=== PATIENT | male | born 1990 | race Caucasian/White ===

== ENCOUNTER → 2016-10-27 | Outpatient (CLI) | payer OTHER ==
[2016-10-27 08:11] LABS: MEAN CORPUSCULAR HEMOGLOBIN 30.6 pg (27.0-33.0); MEAN CORPUSCULAR HGB CONC 35.2 g/dl (32.0-36.5); MEAN CORPUSCULAR VOLUME 87.1 fl (80.0-96.0); WHITE BLOOD COUNT 5.3 K/mm3 (4.0-10.0)
[2016-10-27 08:43] LABS: ALBUMIN 3.9 GM/DL (3.2-5.2); ALBUMIN/GLOBULIN RATIO 1.26 (1.00-1.93); ALKALINE PHOSPHATASE 74 U/L (45-117); ALT/SGPT 43 U/L (12-78); ANION GAP 8 MEQ/L (8-16); AST/SGOT 14 U/L (15-37); BILIRUBIN,TOTAL 1.4 MG/DL (0.2-1.0); BLOOD UREA NITROGEN 20 MG/DL (7-18); CALCIUM LEVEL 9.1 MG/DL (8.5-10.1); CARBON DIOXIDE LEVEL 29 MEQ/L (21-32); CHLORIDE LEVEL 103 MEQ/L (98-107); CHOLESTEROL LEVEL 188 MG/DL (<200); CREATININE FOR GFR 0.84 MG/DL (0.70-1.30); GLOMERULAR FILTRATION RATE > 60.0 (>60); GLUCOSE, FASTING 252 MG/DL (70-105); SODIUM LEVEL 140 MEQ/L (136-145); TRIGLYCERIDES LEVEL 154 MG/DL (<150)
== END | disposition home or self-care (01) ==
LOC: M LAB 07:37
PROVIDERS: ATTEND Nurse Practitioner Family
DX: I10 Essential (primary) hypertension (principal); E10.9 Type 1 diabetes mellitus without complications; E78.00 Pure hypercholesterolemia, unspecified

== ENCOUNTER 2016-10-31 14:46 | Emergency (ER) | payer OTHER ==
[2016-10-31] MEDS ORDERED: AMOXICILLIN 250 MG CAP As Ordered ONE (18:43)
[2016-10-31] MEDS ORDERED: IBUPROFEN 800 MG TAB As Ordered ONE (18:43)
--- NOTE | 2016-10-31 18:51 | EDDOCDS ---
Nurse's Notes [facility] Name: Mehdi Sims Age: 25 yrs Sex: Male : 1990 Arrival Date: 10/31/2016 Time: 14:46 Bed TR7 Private MD: Matthew Hodges [facility] Diagnosis: Arrested dental caries Presentation: 10/31 15:01 Presenting complaint: Patient states: "I have a very bad toothache, it switches from jc4 tooth to tooth and I've got a migraine". [facility] Adult Sepsis Screening: The patient does not have new or worsening altered mentation. Patient's respiratory rate is less than 22. Systolic blood pressure is greater than 100. Patient has a qSOFA score of 0- Negative Sepsis Screen. Suicide/Homicide risk assessment- the patient denies having any suicidal and/or homicidal ideations and does not present with any other emotional, behavioral or mental health complaints. Status: Patient is not a hotel services sales representative or dependent. Transition of care: patient was not received from another setting of care. 15:01 Acuity: MARCE Level 4 jc4 15:01 Method Of Arrival: Walkin/Carried/Asstd jc4 Triage Assessment: 15:05 General: Appears in no apparent distress. Pain: Pain currently is 7 out of 10 on a pain jc4 scale. Pt Declines HIV testing. EENT: Reports pain in mouth. Historical: - Allergies: no known allergies; - Home Meds: 1. Lantus 100 unit/mL Sub-Q soln 38 unit nightly (Last dose: 10/30/2016) 2. Humalog 100 unit/mL Sub-Q soln sliding scale three times daily (Last dose: 10/31/2016 11:30) 3. Wellbutrin 75 mg Oral tab 2 tabs daily (Last dose: 10/31/2016 07:30) 4. ibuprofen 200 mg Oral tab 2 tabs every 4-6 hours as needed (Last dose: 10/31/2016 12:00) - PMHx: Diabetes - IDDM: controlled; Anxiety; Depression; - PSHx: none; - Social history: Smoking status: Patient uses tobacco products, heavy tobacco smoker. No barriers to communication noted, The patient speaks fluent Angolan. - Family history: Not pertinent. - : The pt / caregiver states he / she is not on anticoagulants. Home medication list is obtained from the patient. - Exposure Risk Screening:: None identified. Screenin:48 Screening information is obtained from the patient. Fall risk: No risks identified. ms18 Assistance ADL's: requires no assistance with activities of daily living. Abuse/DV Screen: The patient / caregiver reports he/she is: not in a situation that causes fear, pain or injury. Nutritional screening: No deficits noted. Advance Directives: There is no living will. home support is adequate. Assessment: 18:48 General: Appears in no apparent distress, comfortable, Behavior is appropriate for age, ms18 cooperative, pleasant. Pain: Location: mouth. Neurological: Level of Consciousness is awake, alert, obeys commands, Oriented to person, place, time. Respiratory: Airway is patent Respiratory effort is even, unlabored. Derm: Skin is pink, warm & dry. Vital Signs: 14:48 BP 121 / 72; Pulse 92; Resp 18 S; Temp 97.8(O); Pulse Ox 98% on R/A; Weight 89.36 kg gr2 (M); Height 5 ft. 11 in. (180.34 cm) (R); Pain 8/10; 17:21 BP 118 / 56; Pulse 78; Resp 18; Temp 98.4(TE); Pulse Ox 99% on R/A; Pain 7/10; ar3 18:48 BP 123 / 73 RA Sitting (auto/lg); Pulse 82; Resp 20; Temp 99.5; Pulse Ox 99% on R/A; bnb 14:48 Body Mass Index 27.48 (89.36 kg, 180.34 cm) gr2 Vitals: 14:48 Log In Time: October 31, 2016 at 14:48. gr2 ED Course: 14:48 Patient visited by Srikanth Arroyo. gr2 14:48 [facility] is Private Physician. gr2 14:48 Patient moved to Waiting gr2 14:50 Patient visited by Srikanth Arroyo. gr2 14:50 Patient moved to Pre RCE gr2 15:02 Triage Initiated jc4 17:23 Patient visited by Rosalinda Santiago PCA. ar3 18:20 Patient moved to Triage 2 bnb 18:21 Vikash Amezcua PA is PHCP. mo1 18:21 Kimmie Hawkins MD is Attending Physician. mo1 18:31 Patient visited by Vikash Amezcua PA. mo1 18:37 [facility] is Referral Physician. mo1 18:46 Patient moved to TR7 ms18 18:48 Patient visited by Enedelia Gore PCA. bnb 18:48 The patient / caregiver is instructed regarding the plan of care and ED course. Patient ms18 has correct armband on for positive identification. Property sent home with patient. :Personal belongings accompany Pt. 18:48 No IV's were initiated during this patient's visit. No IV's were initiated during this ms18 patient's visit. No procedures done that require assistance. Administered Medications: 18:47 Drug: Ibuprofen 800 mg [ibuprofen 800 mg tablet (1 tabs)] Route: PO; ms18 18:48 Drug: Amoxicillin 500 mg [amoxicillin 250 mg capsule (2 caps)] Route: PO; ms18 Order Results: There are currently no results for this order. Outcome: 18:37 Discharge ordered by Provider. mo1 18:48 Discharge Assessment: Patient awake, alert and oriented x 3. No cognitive and/or ms18 functional deficits noted. Patient verbalized understanding of disposition instructions. patient administered narcotics - no. The following High Risk Discharge criteria are identified: None. Discharged to home ambulatory. Condition: good Condition: stable Condition: improved. Discharge instructions given to patient, Instructed on discharge instructions, follow up and referral plans. medication usage, Demonstrated understanding of instructions, medications, Pt was receptive of discharge instructions/ teaching. Prescriptions given X 2. No special radiology studies were completed. 18:50 Patient left the ED. ms18 Signatures: Rosalinda Santiago, RN TRANSPLANT RN TRANSPLANT ar3 Amber Thomas, RN RN jc4 Srikanth Arroyo gr2 Vikash Amezcua PA PA mo1 Ayah Anglin,CAMRON RN ms18 Enedelia Gore PCA RN TRANSPLANT bnb [facility]
--- NOTE | 2016-10-31 18:51 | EDDOCDS ---
Physician Documentation [facility] Name: Mehdi Sims Age: 25 yrs Sex: Male : 1990 Arrival Date: 10/31/2016 Time: 14:46 Bed TR7 Private MD: Matthew Hodges [facility] Disposition: 10/31/16 18:37 Discharged to Home/Self Care. Impression: Arrested dental caries. - Condition is Stable. - Discharge Instructions: Dental Abscess, Dental Pain. - Prescriptions for Amoxicillin 500 mg Oral Capsule - take 1 capsule by ORAL route every 8 hours for 10 days; 30 tablet. Ibuprofen 800 mg Oral Tablet - take 1 tablet by ORAL route every 8 hours As needed take with food; 30 tablet. - Medication Reconciliation, Local Pharmacy Hours form. - Follow up: [facility]; When: Call to arrange an appointment; Reason: Recheck today's complaints, Continuance of care. - Problem is new. - Symptoms are unchanged. - Notes: rest and continue with warm salt water rinses, motrin for pain and limit physical activity, NO SMOKING Historical: - Allergies: no known allergies; - Home Meds: 1. Lantus 100 unit/mL Sub-Q soln 38 unit nightly (Last dose: 10/30/2016) 2. Humalog 100 unit/mL Sub-Q soln sliding scale three times daily (Last dose: 10/31/2016 11:30) 3. Wellbutrin 75 mg Oral tab 2 tabs daily (Last dose: 10/31/2016 07:30) 4. ibuprofen 200 mg Oral tab 2 tabs every 4-6 hours as needed (Last dose: 10/31/2016 12:00) - PMHx: Diabetes - IDDM: controlled; Anxiety; Depression; - PSHx: none; - Social history: Smoking status: Patient uses tobacco products, heavy tobacco smoker. No barriers to communication noted, The patient speaks fluent Zambian. - Family history: Not pertinent. - : The pt / caregiver states he / she is not on anticoagulants. Home medication list is obtained from the patient. - Exposure Risk Screening:: None identified. Vital Signs: 10/31 14:48 BP 121 / 72; Pulse 92; Resp 18 S; Temp 97.8(O); Pulse Ox 98% on R/A; Weight 89.36 kg / gr2 197.01 lbs (M); Height 5 ft. 11 in. (180.34 cm) (R); Pain 8/10; 17:21 BP 118 / 56; Pulse 78; Resp 18; Temp 98.4(TE); Pulse Ox 99% on R/A; Pain 7/10; ar3 18:48 BP 123 / 73 RA Sitting (auto/lg); Pulse 82; Resp 20; Temp 99.5; Pulse Ox 99% on R/A; bnb 14:48 Body Mass Index 27.48 (89.36 kg, 180.34 cm) gr2 MDM: 18:34 Amoxicillin 500 mg PO once ordered. mo1 18:34 Ibuprofen 800 mg PO once ordered. mo1 Administered Medications: 18:47 Drug: Ibuprofen 800 mg [ibuprofen 800 mg tablet (1 tabs)] Route: PO; ms18 18:48 Drug: Amoxicillin 500 mg [amoxicillin 250 mg capsule (2 caps)] Route: PO; ms18 Signatures: Amber Thomas RN RN jc4 Vikash Amezcua PA PA mo1 Ayah Anglin RN RN ms18 MTDD
--- NOTE | 2016-11-02 19:50 | EDDOCDS ---
Physician Documentation [facility] Name: Mehdi Sims Age: 25 yrs Sex: Male : 1990 Arrival Date: 10/31/2016 Time: 14:46 Bed TR7 Private MD: Matthew Hodges [facility] Disposition: 10/31/16 18:37 Discharged to Home/Self Care. Impression: Arrested dental caries. - Condition is Stable. - Discharge Instructions: Dental Abscess, Dental Pain. - Prescriptions for Amoxicillin 500 mg Oral Capsule - take 1 capsule by ORAL route every 8 hours for 10 days; 30 tablet. Ibuprofen 800 mg Oral Tablet - take 1 tablet by ORAL route every 8 hours As needed take with food; 30 tablet. - Medication Reconciliation, Local Pharmacy Hours form. - Follow up: [facility]; When: Call to arrange an appointment; Reason: Recheck today's complaints, Continuance of care. - Problem is new. - Symptoms are unchanged. - Notes: rest and continue with warm salt water rinses, motrin for pain and limit physical activity, NO SMOKING Historical: - Allergies: no known allergies; - Home Meds: 1. Lantus 100 unit/mL Sub-Q soln 38 unit nightly (Last dose: 10/30/2016) 2. Humalog 100 unit/mL Sub-Q soln sliding scale three times daily (Last dose: 10/31/2016 11:30) 3. Wellbutrin 75 mg Oral tab 2 tabs daily (Last dose: 10/31/2016 07:30) 4. ibuprofen 200 mg Oral tab 2 tabs every 4-6 hours as needed (Last dose: 10/31/2016 12:00) - PMHx: Diabetes - IDDM: controlled; Anxiety; Depression; - PSHx: none; - Social history: Smoking status: Patient uses tobacco products, heavy tobacco smoker. No barriers to communication noted, The patient speaks fluent [place] Rican. - Family history: Not pertinent. - : The pt / caregiver states he / she is not on anticoagulants. Home medication list is obtained from the patient. - Exposure Risk Screening:: None identified. Vital Signs: 10/31 14:48 BP 121 / 72; Pulse 92; Resp 18 S; Temp 97.8(O); Pulse Ox 98% on R/A; Weight 89.36 kg / gr2 197.01 lbs (M); Height 5 ft. 11 in. (180.34 cm) (R); Pain 8/10; 17:21 BP 118 / 56; Pulse 78; Resp 18; Temp 98.4(TE); Pulse Ox 99% on R/A; Pain 7/10; ar3 18:48 BP 123 / 73 RA Sitting (auto/lg); Pulse 82; Resp 20; Temp 99.5; Pulse Ox 99% on R/A; bnb 14:48 Body Mass Index 27.48 (89.36 kg, 180.34 cm) gr2 MDM: 18:34 Amoxicillin 500 mg PO once ordered. mo1 18:34 Ibuprofen 800 mg PO once ordered. mo1 11/01 09:06 T-Sheet-- Draft Copy was scanned into [employer] and attached to record. gb Administered Medications: 10/31 18:47 Drug: Ibuprofen 800 mg [ibuprofen 800 mg tablet (1 tabs)] Route: PO; ms18 18:48 Drug: Amoxicillin 500 mg [amoxicillin 250 mg capsule (2 caps)] Route: PO; ms18 Signatures: Mai Tse, Reg Reg gb Amber Thomas, RN RN jc4 Vikash Amezcua PA PA mo1 Ayah Anglin,RN RN ms18 The chart was reviewed and I authenticate all verbal orders and agree with the evaluation and treatment provided.Attachments: 11/01 09:06 T-Sheet-- Draft Copy gb Chart Complete MTDD
--- NOTE | 2016-11-02 19:50 | EDDOCDS ---
Physician Documentation [facility] Name: Mehdi Sims Age: 25 yrs Sex: Male : 1990 Arrival Date: 10/31/2016 Time: 14:46 Bed TR7 Private MD: Matthew Hodges [facility] Disposition: 10/31/16 18:37 Discharged to Home/Self Care. Impression: Arrested dental caries. - Condition is Stable. - Discharge Instructions: Dental Abscess, Dental Pain. - Prescriptions for Amoxicillin 500 mg Oral Capsule - take 1 capsule by ORAL route every 8 hours for 10 days; 30 tablet. Ibuprofen 800 mg Oral Tablet - take 1 tablet by ORAL route every 8 hours As needed take with food; 30 tablet. - Medication Reconciliation, Local Pharmacy Hours form. - Follow up: [facility]; When: Call to arrange an appointment; Reason: Recheck today's complaints, Continuance of care. - Problem is new. - Symptoms are unchanged. - Notes: rest and continue with warm salt water rinses, motrin for pain and limit physical activity, NO SMOKING Historical: - Allergies: no known allergies; - Home Meds: 1. Lantus 100 unit/mL Sub-Q soln 38 unit nightly (Last dose: 10/30/2016) 2. Humalog 100 unit/mL Sub-Q soln sliding scale three times daily (Last dose: 10/31/2016 11:30) 3. Wellbutrin 75 mg Oral tab 2 tabs daily (Last dose: 10/31/2016 07:30) 4. ibuprofen 200 mg Oral tab 2 tabs every 4-6 hours as needed (Last dose: 10/31/2016 12:00) - PMHx: Diabetes - IDDM: controlled; Anxiety; Depression; - PSHx: none; - Social history: Smoking status: Patient uses tobacco products, heavy tobacco smoker. No barriers to communication noted, The patient speaks fluent Namibian. - Family history: Not pertinent. - : The pt / caregiver states he / she is not on anticoagulants. Home medication list is obtained from the patient. - Exposure Risk Screening:: None identified. Vital Signs: 10/31 14:48 BP 121 / 72; Pulse 92; Resp 18 S; Temp 97.8(O); Pulse Ox 98% on R/A; Weight 89.36 kg / gr2 197.01 lbs (M); Height 5 ft. 11 in. (180.34 cm) (R); Pain 8/10; 17:21 BP 118 / 56; Pulse 78; Resp 18; Temp 98.4(TE); Pulse Ox 99% on R/A; Pain 7/10; ar3 18:48 BP 123 / 73 RA Sitting (auto/lg); Pulse 82; Resp 20; Temp 99.5; Pulse Ox 99% on R/A; bnb 14:48 Body Mass Index 27.48 (89.36 kg, 180.34 cm) gr2 MDM: 18:34 Amoxicillin 500 mg PO once ordered. mo1 18:34 Ibuprofen 800 mg PO once ordered. mo1 11/01 09:06 T-Sheet-- Draft Copy was scanned into [employer] and attached to record. gb Administered Medications: 10/31 18:47 Drug: Ibuprofen 800 mg [ibuprofen 800 mg tablet (1 tabs)] Route: PO; ms18 18:48 Drug: Amoxicillin 500 mg [amoxicillin 250 mg capsule (2 caps)] Route: PO; ms18 Signatures: Mai Tse, Reg Reg gb Amber Thomas, RN RN jc4 Vikash Amezcua PA PA mo1 Ayah Anglin,RN RN ms18 The chart was reviewed and I authenticate all verbal orders and agree with the evaluation and treatment provided.Attachments: 11/01 09:06 T-Sheet-- Draft Copy gb Chart Complete MTDD
--- NOTE | 2016-11-02 19:51 | EDDOCDS ---
Nurse's Notes [facility] Name: Mehdi Sims Age: 25 yrs Sex: Male : 1990 Arrival Date: 10/31/2016 Time: 14:46 Bed TR7 Private MD: Matthew Hodges [facility] Diagnosis: Arrested dental caries Presentation: 10/31 15:01 Presenting complaint: Patient states: "I have a very bad toothache, it switches from jc4 tooth to tooth and I've got a migraine". [facility] Adult Sepsis Screening: The patient does not have new or worsening altered mentation. Patient's respiratory rate is less than 22. Systolic blood pressure is greater than 100. Patient has a qSOFA score of 0- Negative Sepsis Screen. Suicide/Homicide risk assessment- the patient denies having any suicidal and/or homicidal ideations and does not present with any other emotional, behavioral or mental health complaints. Status: Patient is not a customer service leader or dependent. Transition of care: patient was not received from another setting of care. 15:01 Acuity: MARCE Level 4 jc4 15:01 Method Of Arrival: Walkin/Carried/Asstd jc4 Triage Assessment: 15:05 General: Appears in no apparent distress. Pain: Pain currently is 7 out of 10 on a pain jc4 scale. Pt Declines HIV testing. EENT: Reports pain in mouth. Historical: - Allergies: no known allergies; - Home Meds: 1. Lantus 100 unit/mL Sub-Q soln 38 unit nightly (Last dose: 10/30/2016) 2. Humalog 100 unit/mL Sub-Q soln sliding scale three times daily (Last dose: 10/31/2016 11:30) 3. Wellbutrin 75 mg Oral tab 2 tabs daily (Last dose: 10/31/2016 07:30) 4. ibuprofen 200 mg Oral tab 2 tabs every 4-6 hours as needed (Last dose: 10/31/2016 12:00) - PMHx: Diabetes - IDDM: controlled; Anxiety; Depression; - PSHx: none; - Social history: Smoking status: Patient uses tobacco products, heavy tobacco smoker. No barriers to communication noted, The patient speaks fluent Sri Lankan. - Family history: Not pertinent. - : The pt / caregiver states he / she is not on anticoagulants. Home medication list is obtained from the patient. - Exposure Risk Screening:: None identified. Screenin:48 Screening information is obtained from the patient. Fall risk: No risks identified. ms18 Assistance ADL's: requires no assistance with activities of daily living. Abuse/DV Screen: The patient / caregiver reports he/she is: not in a situation that causes fear, pain or injury. Nutritional screening: No deficits noted. Advance Directives: There is no living will. home support is adequate. Assessment: 18:48 General: Appears in no apparent distress, comfortable, Behavior is appropriate for age, ms18 cooperative, pleasant. Pain: Location: mouth. Neurological: Level of Consciousness is awake, alert, obeys commands, Oriented to person, place, time. Respiratory: Airway is patent Respiratory effort is even, unlabored. Derm: Skin is pink, warm & dry. Vital Signs: 14:48 BP 121 / 72; Pulse 92; Resp 18 S; Temp 97.8(O); Pulse Ox 98% on R/A; Weight 89.36 kg gr2 (M); Height 5 ft. 11 in. (180.34 cm) (R); Pain 8/10; 17:21 BP 118 / 56; Pulse 78; Resp 18; Temp 98.4(TE); Pulse Ox 99% on R/A; Pain 7/10; ar3 18:48 BP 123 / 73 RA Sitting (auto/lg); Pulse 82; Resp 20; Temp 99.5; Pulse Ox 99% on R/A; bnb 14:48 Body Mass Index 27.48 (89.36 kg, 180.34 cm) gr2 Vitals: 14:48 Log In Time: October 31, 2016 at 14:48. gr2 ED Course: 14:48 Patient visited by Srikanth Arroyo. gr2 14:48 [facility] is Private Physician. gr2 14:48 Patient moved to Waiting gr2 14:50 Patient visited by Srikanth Arroyo. gr2 14:50 Patient moved to Pre RCE gr2 15:02 Triage Initiated jc4 17:23 Patient visited by Rosalinda Santiago PCA. ar3 18:20 Patient moved to Triage 2 bnb 18:21 Vikash Amezcua PA is PHCP. mo1 18:21 Kimmie Hawkins MD is Attending Physician. mo1 18:31 Patient visited by Vikash Amezcua PA. mo1 18:37 [facility] is Referral Physician. mo1 18:46 Patient moved to TR7 ms18 18:48 Patient visited by Enedelia Gore PCA. bnb 18:48 The patient / caregiver is instructed regarding the plan of care and ED course. Patient ms18 has correct armband on for positive identification. Property sent home with patient. :Personal belongings accompany Pt. 18:48 No IV's were initiated during this patient's visit. No IV's were initiated during this ms18 patient's visit. No procedures done that require assistance. 11/01 09:06 T-Sheet-- Draft Copy was scanned into [employer] and attached to record. gb Administered Medications: 01 18:47 Drug: Ibuprofen 800 mg [ibuprofen 800 mg tablet (1 tabs)] Route: PO; ms18 18:48 Drug: Amoxicillin 500 mg [amoxicillin 250 mg capsule (2 caps)] Route: PO; ms18 Order Results: There are currently no results for this order. Outcome: 18:37 Discharge ordered by Provider. mo1 18:48 Discharge Assessment: Patient awake, alert and oriented x 3. No cognitive and/or ms18 functional deficits noted. Patient verbalized understanding of disposition instructions. patient administered narcotics - no. The following High Risk Discharge criteria are identified: None. Discharged to home ambulatory. Condition: good Condition: stable Condition: improved. Discharge instructions given to patient, Instructed on discharge instructions, follow up and referral plans. medication usage, Demonstrated understanding of instructions, medications, Pt was receptive of discharge instructions/ teaching. Prescriptions given X 2. No special radiology studies were completed. 18:50 Patient left the ED. ms18 Signatures: Mai Tse, Reg Reg gb Rosalinda Santiago, DATA PROCESSING CONTROL CLERK DATA PROCESSING CONTROL CLERK ar3 Amber Thomas RN RN jc4 Srikanth Arroyo gr2 Vikash Amezcua PA PA mo1 Ayah Anglin RN RN ms18 Enedelia Gore, DATA PROCESSING CONTROL CLERK DATA PROCESSING CONTROL CLERK bnb Chart Complete MTDD
== END 2016-10-31 18:50 | disposition home or self-care (01) ==
LOC: M ED 14:46
DX: K04.7 Periapical abscess without sinus (principal); K02.9 Dental caries, unspecified; G50.1 Atypical facial pain; E11.9 Type 2 diabetes mellitus without complications; F41.9 Anxiety disorder, unspecified; F32.9 Major depressive disorder, single episode, unspecified; F17.200 Nicotine dependence, unspecified, uncomplicated; Z79.4 Long term (current) use of insulin; Z79.899 Other long term (current) drug therapy

== ENCOUNTER → 2017-01-09 | Outpatient (CLI) | payer OTHER ==
[2017-01-09 08:11] LABS: ALBUMIN 3.9 GM/DL (3.2-5.2); ALBUMIN/GLOBULIN RATIO 1.34 (1.00-1.93); ALKALINE PHOSPHATASE 65 U/L (45-117); ALT/SGPT 75 U/L (12-78); ANION GAP 7 MEQ/L (8-16); AST/SGOT 28 U/L (15-37); BILIRUBIN,TOTAL 1.9 MG/DL (0.2-1.0); BLOOD UREA NITROGEN 16 MG/DL (7-18); CALCIUM LEVEL 8.4 MG/DL (8.5-10.1); CARBON DIOXIDE LEVEL 30 MEQ/L (21-32); CHLORIDE LEVEL 102 MEQ/L (98-107); CHOLESTEROL LEVEL 215 MG/DL (<200); GLOMERULAR FILTRATION RATE > 60.0 (>60); GLUCOSE, FASTING 273 MG/DL (70-105); POTASSIUM SERUM 3.9 MEQ/L (3.5-5.1); SODIUM LEVEL 139 MEQ/L (136-145); TOTAL PROTEIN 6.8 GM/DL (6.4-8.2); TRIGLYCERIDES LEVEL 139 MG/DL (<150)
[2017-01-09 08:31] LABS: MEAN CORPUSCULAR HEMOGLOBIN 29.1 pg (27.0-33.0); MEAN CORPUSCULAR HGB CONC 33.6 g/dl (32.0-36.5); MEAN CORPUSCULAR VOLUME 86.8 fl (80.0-96.0); RED CELL DISTRIBUTION WIDTH 12.4 % (11.5-14.5); WHITE BLOOD COUNT 5.6 K/mm3 (4.0-10.0)
== END ==
LOC: M LAB 06:55
PROVIDERS: ATTEND Nurse Practitioner Family
DX: E11.9 Type 2 diabetes mellitus without complications (principal); E78.2 Mixed hyperlipidemia